=== PATIENT | male | born 1970 | race Caucasian/White ===

== ENCOUNTER 2023-05-10 12:02 | Emergency (ER) | payer BC ==
[~2023-05-10] VITALS: Ht 175.3 cm; Wt 79.4 kg
[2023-05-10 12:12] VITALS: BP_SYST 138; PULSE 70; RESP 20; TEMP 98; O2SAT 99
[2023-05-10] MEDS ORDERED: IBUP-1971 PO (13:39)
[2023-05-10] MEDS ORDERED: AMOX-423 PO (13:39)
[2023-05-10 13:44] LABS: BASOPHILS % (AUTO) 0.4 % (0.0-2.0); EOSINOPHILS # (AUTO) 0.1 K/uL (0.0-0.4); EOSINOPHILS % (AUTO) 1.1 % (0.0-4.0); HEMATOCRIT 42.2 % (36-54); HEMOGLOBIN 14.1 g/dL (14.0-18.0); LYMPHOCYTES # (AUTO) 2.3 K/uL (1.0-5.5); LYMPHOCYTES % (AUTO) 24.1 % (20.5-51.5); MEAN CORPUSCULAR HEMOGLOBIN 30 pg (27-31); MEAN CORPUSCULAR HGB CONC 34 % (32-36); MEAN CORPUSCULAR VOLUME 90 fL (79.0-98.0); MONOCYTES # (AUTO) 0.9 K/uL (0.0-1.0); MONOCYTES % (AUTO) 9.8 % (1.7-9.3); NEUTROPHILS # (AUTO) 6.1 K/uL (1.8-7.7); NEUTROPHILS % (AUTO) 64.6 % (40.0-70.0); PLATELET COUNT (AUTO) 311 K/uL (130-430); RED CELL DISTRIBUTION WIDTH 13.3 % (9.0-15.0); WHITE BLOOD COUNT (AUTO) 9.5 K/uL (4.8-10.8)
[2023-05-10] MEDS ORDERED: IBUPROFEN 800 MG TABLET PO ONE (13:45)
[2023-05-10] MEDS ORDERED: AMOXICILLIN/POTASSIUM CLAV 875 MG TABLET PO ONE (13:45)
[2023-05-10 13:50] LABS: ANION GAP 10 (5-15); CALCIUM 8.6 mg/dL (8.4-11.0); CHLORIDE 103 mmol/L (98-107); CREATININE 0.79 mg/dL (0.55-1.30); GFR AFRICAN AMERICAN 132 mL/min (>90); GLUCOSE 94 mg/dL (74-106); UREA NITROGEN, BLOOD 13 mg/dL (8-21)
[2023-05-10 13:54] LABS: ALANINE AMINOTRANSFERASE 41 U/L (12-78); AMYLASE 92 U/L (0-100); ASPARTATE AMINOTRANSFERASE 19 U/L (10-37); LIPASE 91 U/L (73-393); TOTAL BILIRUBIN 1.3 mg/dL (0.0-1.0)
[2023-05-10 14:06] VITALS: BP_SYST 135; PULSE 74; RESP 17; TEMP 97.3; O2SAT 97
[2023-05-10 14:09] LABS: BILIRUBIN,URINE NEGATIVE (NEGATIVE); BLOOD, URINE 1+ (NEGATIVE); CLARITY/URINE CLEAR (CLEAR); COLOR,URINE YELLOW (YELLOW); GLUCOSE,URINE NEGATIVE (NEGATIVE); KETONES,URINE NEGATIVE (NEGATIVE); LEUKOCYTE ESTERASE ,URINE NEGATIVE (NEGATIVE); NITRITE, URINE NEGATIVE (NEGATIVE); PROTEIN URINE NEGATIVE (NEGATIVE); UROBILINOGEN,URINE 0.2 (0.2-1.0)
[2023-05-10 14:20] LABS: INR 0.9 (0.80-1.20); PROTHROMBIN TIME 9.8 SECS (9.5-12.5)
[2023-05-10 14:46] LABS: BACTERIA,URINE None Seen /HPF (None Seen); MUCUS,URINE None Seen /LPF (None Seen); RBC,URINE NONE SEEN /HPF (0-3); WBC,URINE NONE SEEN /HPF (0-3)
[2023-05-10 14:54] LABS: ACETONE, SERUM NEGATIVE (NEGATIVE)
== END 2023-05-10 14:07 | disposition home or self-care (01) ==
LOC: SED 12:02
DX: K57.92 Diverticulitis of intestine, part unspecified, without perforation or abscess without bleeding (principal); R10.32 Left lower quadrant pain; R11.0 Nausea; Z79.899 Other long term (current) drug therapy
CPT/HCPCS: 36415; 76376; 80053; 81000; 82009; 82150; 83605; 83690; 85025; 85610-TC; 85730-TC; 99284

== ENCOUNTER 2023-05-12 08:12 | Emergency (ER) | payer BC ==
[~2023-05-12] VITALS: Ht 175.3 cm; Wt 79.4 kg
[~2023-05-12 08:12] MED LIST: AMOX-423 PO; IBUP-1971 PO
[2023-05-12 08:22] VITALS: BP_SYST 126; PULSE 69; RESP 16; TEMP 97.6
[2023-05-12 08:48] LABS: BASOPHILS # (AUTO) 0.1 K/uL (0.0-0.2); BASOPHILS % (AUTO) 0.9 % (0.0-2.0); EOSINOPHILS # (AUTO) 0.2 K/uL (0.0-0.4); EOSINOPHILS % (AUTO) 2.6 % (0.0-4.0); HEMATOCRIT 43.4 % (36-54); HEMOGLOBIN 14.3 g/dL (14.0-18.0); LYMPHOCYTES # (AUTO) 2.5 K/uL (1.0-5.5); MEAN CORPUSCULAR HEMOGLOBIN 30 pg (27-31); MEAN CORPUSCULAR HGB CONC 33 % (32-36); MEAN CORPUSCULAR VOLUME 90 fL (79.0-98.0); MONOCYTES # (AUTO) 0.6 K/uL (0.0-1.0); MONOCYTES % (AUTO) 9.2 % (1.7-9.3); NEUTROPHILS % (AUTO) 47.3 % (40.0-70.0); PLATELET COUNT (AUTO) 320 K/uL (130-430); RED BLOOD CELL COUNT(AUTO) 4.82 MIL/uL (4.2-6.2); RED CELL DISTRIBUTION WIDTH 13.5 % (9.0-15.0); WHITE BLOOD COUNT (AUTO) 6.4 K/uL (4.8-10.8)
[2023-05-12 09:00] LABS: CALCIUM 9.1 mg/dL (8.4-11.0); CREATININE 0.87 mg/dL (0.55-1.30)
[2023-05-12 09:33] LABS: ALBUMIN 3.7 g/dL (3.4-4.8)
[2023-05-12] MEDS ORDERED: SIMETHICONE 40 MG/0.6 ML ML ONE (16:18)
[2023-05-12] MEDS ORDERED: MIDAZOLAM HCL 5 MG/5 ML VIAL ONE (16:19)
[2023-05-12] MEDS ORDERED: fentaNYL CITRATE/PF 100 MCG/2 ML AMP ONE (16:19)
== END 2023-05-12 09:58 | disposition home or self-care (01) ==
LOC: SED 08:12
DX: K57.92 Diverticulitis of intestine, part unspecified, without perforation or abscess without bleeding (principal); R10.9 Unspecified abdominal pain; Z79.899 Other long term (current) drug therapy
CPT/HCPCS: 36415; 80053; 83605; 85025; 99283; J2250; J3010